=== PATIENT | female | born 1960 | race Caucasian/White ===

== ENCOUNTER 2020-07-01 12:55 | Emergency (ER) | payer BC ==
[2020-07-01 13:06] VITALS: BP 138/88; PULSE 94; TEMP 99.2; BMI 34.5
[2020-07-01 14:16] LABS: EOS % 1.8 % (0-4.5); HCG,QUALITATIVE URINE Negative; HEMATOCRIT 46.8 % (32.4-45.2); HEMOGLOBIN 15.5 GM/dl (10.7-15.3); LYMPH % 34.7 % (8-40); MCH 29.4 pg (25.7-33.7); MCHC 33.2 g/dl (32.0-36.0); MEAN CELL VOLUME 88.8 fl (80-96); MEAN PLT VOLUME 9.1 fl (7.5-11.1); MONO % 8.9 % (3.8-10.2); NEUT % 53.6 % (42.8-82.8); PLATELET COUNT 231 K/MM3 (134-434); RBC 5.27 M/mm3 (3.60-5.2); RDW 13.7 % (11.6-15.6); WHITE BLOOD COUNT 5.9 K/mm3 (4.0-10.8)
[2020-07-01 14:25] LABS: ALBUMIN 4.2 g/dl (3.4-5.0); ALK PHOS 53 U/L (45-117); ANION GAP 8 MMOL/L (8-16); BILIRUBIN,TOTAL 1.1 mg/dl (0.2-1); CALCIUM 9.3 mg/dl (8.5-10); CHLORIDE 98 mmol/L (98-107); CO2 29 mmol/L (21-32); CREATININE 0.8 mg/dl (0.55-1.3); EPITHELIAL CELLS FEW /hpf; GLUCOSE,RANDOM 94 mg/dl (74-106); SGOT/AST 22 U/L (15-37); SGPT/ALT 26 U/L (13-61); SODIUM 135 mmol/L (136-145)
[2020-07-01] MEDS ORDERED: ACETAMINOPHEN INJECTION 100 ML IVPB ONE (15:25)
[2020-07-01] MEDS ORDERED: ACETAMINOPHEN 1000 MG/100 ML VIAL (NON FORMULARY) IVPB ONE (15:26)
[2020-07-01] MEDS ORDERED: SODIUM CHLORIDE 0.9% 500 ML INFUS.BAG IV ONE (15:27)
[2020-07-01] MEDS ORDERED: KETOROLAC TROMETHAMINE 15 MG/ML VIAL IVPUSH ONE (16:11)
[2020-07-01] MEDS ORDERED: KETOROLAC TROMETHAMINE 15 MG/ML VIAL ONE (16:21)
== END 2020-07-01 17:16 | disposition home or self-care (01) ==
LOC: FER 12:55
PROC: 3E0333Z Introduction of Anti-inflammatory into Peripheral Vein, Percutaneous Approach (ICD-10-PCS; principal; 2020-07-01)
PROC: 3E0333Z Introduction of Anti-inflammatory into Peripheral Vein, Percutaneous Approach (ICD-10-PCS; 2020-07-01)
DX: M54.6 Pain in thoracic spine (principal); M54.9 Dorsalgia, unspecified
CPT/HCPCS: 36415; 71275-TC; 74174-TC; 80053; 81003; 81015; 82550; 84484; 84703; 85025; 87086; 93005; 99285-25; J0131; Q9967

== ENCOUNTER 2021-07-23 01:15 | Emergency (ER) | payer BC ==
[2021-07-23 01:21] VITALS: BP 140/77; PULSE 78; TEMP 98.4; BMI 34.5
[2021-07-23] MEDS ORDERED: TOBRA 0.3%/DEXAMETH 0.1% OPHTHALMIC SUSP 2.5 ML BTL ONE (01:32)
[2021-07-23] MEDS ORDERED: TOBRA 0.3%/DEXAMETH 0.1% OPHTHALMIC SUSP 2.5 ML BTL OU STA (01:37)
[2021-07-23] MEDS ORDERED: TOBRA 0.3%/DEXAMETH 0.1% OPHTHALMIC SUSP 2.5 ML BTL OU SCH (06:00)
== END 2021-07-23 01:44 | disposition home or self-care (01) ==
LOC: FER 01:15
DX: H10.9 Unspecified conjunctivitis (principal)
CPT/HCPCS: 99283-25

== ENCOUNTER 2021-09-09 20:41 | Emergency (ER) | payer BC ==
[2021-09-09 20:59] VITALS: BP 150/87; PULSE 82; RESP 16; TEMP 98.6; BMI 34.5
[2021-09-09 21:21] LABS: EPITHELIAL CELLS FEW /hpf
[2021-09-09] MEDS ORDERED: SULFAMETHOXAZOLE/TRIMETHOPRIM 800MG/160MG D.S. TABLET PO ONE (21:41)
[2021-09-09] MEDS ORDERED: SULFAMETHOXAZOLE/TRIMETHOPRIM 800MG/160MG D.S. TABLET ONE (21:43)
== END 2021-09-09 21:51 | disposition home or self-care (01) ==
LOC: FER 20:41
DX: N39.0 Urinary tract infection, site not specified (principal); N10 Acute pyelonephritis
CPT/HCPCS: 81003; 81015; 87086; 87186; 99283-25

== ENCOUNTER 2021-11-17 13:32 | Emergency (ER) | payer BC ==
[2021-11-17 13:47] VITALS: BP 153/94; PULSE 96; RESP 16; TEMP 98.6; BMI 33.6
[2021-11-17 14:59] LABS: EPITHELIAL CELLS MODERATE /hpf
== END 2021-11-17 15:25 | disposition home or self-care (01) ==
LOC: FER 13:32
DX: N39.0 Urinary tract infection, site not specified (principal)
CPT/HCPCS: 0241U-QW; 81003; 81015; 87086; 99283-25

== ENCOUNTER 2022-02-19 21:48 | Emergency (ER) | payer BC, OTHER ==
[2022-02-19 21:58] VITALS: BP 155/92; PULSE 72; RESP 18; TEMP 97.8; BMI 33.6
[2022-02-19] MEDS ORDERED: PHENAZOPYRIDINE HCL 100 MG TABLET (FP) PO ONE (22:08)
[2022-02-19] MEDS ORDERED: NITROFURANTOIN MACROCRYSTAL 50 MG CAPSULE (FP) PO SCH (22:15)
[2022-02-19] MEDS ORDERED: PHENAZOPYRIDINE HCL 100 MG TABLET (FP) ONE (22:36)
[2022-02-19] MEDS ORDERED: NITROFURANTOIN MACROCRYSTAL 50 MG CAPSULE (FP) ONE (22:36)
[2022-02-19 23:22] LABS: EPITHELIAL CELLS FEW /hpf
== END 2022-02-19 22:45 | disposition home or self-care (01) ==
LOC: FER 21:48
DX: N30.90 Cystitis, unspecified without hematuria (principal)
CPT/HCPCS: 81003; 81015; 87086; 99283-25